=== PATIENT | female | born 1945 | race Caucasian/White ===

== ENCOUNTER → 2024-04-05 | Outpatient (CLI) | payer MEDICARE | END | disposition home or self-care (01) | LOC: RADPV 09:10 | PROVIDERS: ATTEND Internal Medicine | DX: I83.813 Varicose veins of bilateral lower extremities with pain (principal); I87.2 Venous insufficiency (chronic) (peripheral); R60.9 Edema, unspecified | CPT/HCPCS: 93880; 93970 ==